=== PATIENT | male | born 1995 | race Caucasian/White ===

== ENCOUNTER 2016-07-09 21:27 | Emergency (ER) | payer OTHER ==
[~2016-07-09 21:27] MED LIST: FISH OIL 1,0001 EAC1 PO; NEXIUM20 M1 PO
[2016-07-09 21:32] VITALS: BP 137/78
--- NOTE | 2016-07-09 21:54 | ED AMS/SEIZURE/WEAK/DIZZY ---
History of Present Illness General Chief Complaint: General Adult Stated Complaint: PT HAD NOSE BLEED,DIZZY,SHAKEY Source: patient Exam Limitations: no limitations Vital Signs & Intake/Output Vital Signs & Intake/Output Vital Signs Date Time Temp Pulse Resp B/P Pulse O2 O2 Flow FiO2 Ox Delivery Rate 07/095 97 Room Air 07/10 2131 97.4 77 18 137/78 96 Room Air ED Intake and Output 07/10 0000 07/09 1200 Intake Total Output Total Balance Patient 145 lb Weight Allergies Coded Allergies: Penicillins (HIVES ALL OVER BODY 07/09/16) Reconcile Medications Esomeprazole Magnesium (Nexium) 20 MG CAPSULE. 1 CAP PO DAILY GI (Reported) Glen-3 Fatty Acids/Fish Oil (Fish Oil 1,000 MG Softgel) (Unknown Strength) CAPSULE (Unknown Dose) PO DAILY SUPPLEMENT (Reported) Triage Note: TRIAGE: PT TO ER C/C "I WAS AT WORK, RUNNING IN AND OUT. I GOT THE NOSE BLEED OUT OF BOTH NOSTRILS. THEN I GOT NAUSEA, GOT HOT AND COLD. MY STOMACH STARTED FEELING FUNNY. I GOT WEAK. MY BOSS SAID I LOOKED PALE." REPORTS STILL FEELS "SHAKEY, WEAK, CONFUSED OR SOMETHING. I'M NOT SURE." NOSEBLEED LASTED "A MINUTE OR TWO". Triage Nurses Notes Reviewed? yes Onset: Abrupt Duration: minute(s):, improving Timing: recent history No Modifying Factors: none HPI: 21-year-old male comes into emergency room with complaints of feeling lightheaded dizzy weak and nauseous after he got a bloody nose at work. Patient reports that he was in the kitchen working. He got a spontaneous nosebleed. Immediately after he fell lightheaded dizzy nauseous and had a sitdown. Denies any chest pain or shortness of breath currently. Denies any heart palpitations. Patient reports that his boss told him to come to the hospital for further evaluation. Patient said that sometimes he feels a weird sensation in his chest when he is walking but doesn't know if that is normal or not. He denies any active chest pain or shortness of breath or cardiac symptoms at the moment. Nosebleed has resolved on its own. (AMANDO GERMAN) Past History Travel History Traveled to [place] past 21 day No Medical History Any Pertinent Medical History? 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 No (AMANDO GERMAN) Review of Systems Review of Systems Constitutional: Reports: no symptoms. EENTM: Reports: no symptoms, see HPI. Respiratory: Reports: no symptoms. Cardiovascular: Reports: see HPI. GI: Reports: no symptoms. Genitourinary: Reports: no symptoms. Musculoskeletal: Reports: no symptoms. Skin: Reports: no symptoms. Neurological/Psychological: Reports: see HPI. Hematologic/Endocrine: Reports: see HPI. Immunologic/Allergic: Reports: no symptoms. All Other Systems: Reviewed and Negative (AMANDO GERMAN) Physical Exam Physical Exam General Appearance: well developed/nourished, no apparent distress, alert, awake Head: atraumatic, normal appearance Eyes: Bilateral: normal appearance, PERRL, EOMI. Ears, Nose, Throat: normal pharynx, normal ENT inspection, hearing grossly normal Neck: normal inspection, supple, full range of motion Respiratory: normal breath sounds, chest non-tender, no respiratory distress Cardiovascular: regular rate/rhythm Back: normal inspection Extremities: normal range of motion Neurologic/Psych: no motor/sensory deficits, awake, alert, oriented x 3, normal gait, normal mood/affect Skin: intact, normal color Core Measures ACS in differential dx? No CVA/TIA Diagnosis: No Severe Sepsis Present: No Septic Shock Present: No (AMANDO GERMAN) Progress Differential Diagnosis: arrythmia, alcohol intoxication, anemia, CVA/stroke, dehydration, drug intoxication, encephalitis, electrolyte imbalance, hypoglycemia, intracranial mass/tumor, pneumonia, presyncope, sepsis, seizure disorder, subarachnoid Hem., UTI/pyelo, vertebrobasilar insuff Plan of Care: Orders Procedure Date/time Status EKG 07/09 2153 Active Initial ED EKG: normal intervals, normal p-waves, normal QRS complex, normal sinus rhythm, rate (64) (AMANDO GERMAN) Departure Departure Disposition: HOME OR SELF CARE Condition: Stable Clinical Impression Primary Impression: Near syncope Referrals: LAINEY GODOY MD (PCP/Family) Additional Instructions: Follow-up with your primary care doctor for further evaluation and outpatient workup. Return to the emergency room immediately if any other concerns worsening symptoms. Return if any chest pain shortness of breath or palpitations. Please go over all results of today's visit with your primary care doctor. Contact your primary care doctor to let them know you were here in the emergency room. There may be nonspecific findings which may not be related to your visit today here in the emergency room but may require further evaluation and chronic monitoring by your primary care doctor. If you had a laceration today the chance of foreign body always remains. You should follow-up with your primary care doctor for recheck in 3-5 days for a wound check. If you had an x-ray done there is a chance that a fracture could have been missed on initial read and you should follow-up with your primary care doctor for repeat x-rays if symptoms persist. If your blood pressure was elevated here in the emergency room please have rechecked by her primary care doctor within the next 48 hours by your primary care doctor. If you were prescribed a narcotic here in the emergency room or any type of controlled substances you're not allowed to drive while taking this medication or operate any type of heavy machinery. Narcotics can make you feel lightheaded dizziness nausea and can cause constipation. You may need to chicken picker a stool softener. Thank you for choosing [facility] emergency room. Please return to the emergency room immediately if you have any other concerns worsening of symptoms. Departure Forms: Customer Survey General Discharge Information Comments 07/09/2016 10:58:49 PM Patient clinically looks well. Nontoxic-appearing. In no apparent distress. Shared decision making. I offered the patient further evaluation with blood work put he agrees with my plan of care. He declined at this time. I explained to him I do not feel it is 100% necessary at the moment. Patient likely had a vasovagal episode. He clinically looks well. Vital stable. EKG within normal limits. Patient reports he feels still slightly shaky. Has no cardiac or pulmonary symptoms currently. Patient safe to be discharged and follow up with primary care doctor. Return if any other concerns. (AMANDO GERMAN) PA/FORENSIC ANALYST Co-Sign Statement Statement: ED Attending supervision documentation- [] I saw and evaluated the patient. I have also reviewed all the pertinent lab results and diagnostic results. I agree with the findings and the plan of care as documented in the PA's/FORENSIC ANALYST's documentation. [x] I have reviewed the ED Record and agree with the PA's/FORENSIC ANALYST's documentation. [] Additions or exceptions (if any) to the PAs/FORENSIC ANALYST's note and plan are summarized below: [] (MORA HUNTER,DEVANTE Smith
== END 2016-07-09 22:37 ==
LOC: ERH 21:27
DX: R55 Syncope and collapse (principal)
CPT/HCPCS: 93005; 93010

== ENCOUNTER 2017-06-09 14:54 | Emergency (ER) | payer OTHER ==
[~2017-06-09] VITALS: Ht 180.3 cm; Wt 68.0 kg
[2017-06-09 15:00] VITALS: BP 125/84
--- NOTE | 2017-06-09 15:02 | ED ANIMAL BITE/WOUND CHECK ---
History of Present Illness General Chief Complaint: Suture Removal/Wound Recheck Stated Complaint: SUTURE REMOVAL Source: patient Exam Limitations: no limitations Vital Signs & Intake/Output Vital Signs & Intake/Output Vital Signs Date Time Temp Pulse Resp B/P B/P Pulse O2 O2 Flow FiO2 Mean Ox Delivery Rate 06/09 1500 97.7 100 15 125/84 98 Room Air Room Air Allergies Coded Allergies: Penicillins (HIVES ALL OVER BODY 06/09/17) Reconcile Medications Esomeprazole Magnesium (Nexium) 20 MG CAPSULE.DR 1 CAP PO DAILY GI (Reported) [place]-3 Fatty Acids/Fish Oil (Fish Oil 1,000 MG Softgel) (Unknown Strength) CAPSULE (Unknown Dose) PO DAILY SUPPLEMENT (Reported) Triage Nurses Notes Reviewed? yes Onset: 10 DAYS AGO Duration: day(s): (10) Timing: remote history Injury Environment: home Is Injury an Animal Bite? No Severity: mild HPI: Patient is a 22-year-old male here for suture removal. Was seen and evaluated here 10 days ago for left index finger laceration. Reports his been healing up well. No fevers chills nausea vomiting chest pain or shortness breath. Denies any numbness or tingling. Past History Travel History Traveled to [place] past 21 day No Medical History Any Pertinent Medical History? 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 No Review of Systems Review of Systems Constitutional: Reports: no symptoms. Comments Review of systems: See HPI, All other systems negative. Constitutional, no chills fever or weight loss HEENT: No visual changes no sore throat no congestion Cardiovascular: No chest pain ,palpitation Skin, no jaundice no rashes Respiratory: No dyspnea cough sputum or hemoptysis GI: No nausea no vomiting Muscle skeletal: no back pain, no neck pain, Neurologic: No numbness Immunology: No splenectomy or history of AIDS Physical Exam Physical Exam General Appearance: well developed/nourished, no apparent distress, alert, awake , comfortable Comments: Well-developed well-nourished person in no acute distress HEENT: Atraumatic, normocephalic Neck: Normal inspection Cardiovascular: Radial pulses are 2+ bilaterally. Cap refill intact in left upper extremity. Respiratory: No respiratory distress. Extremity: No edema, Neuro: Alert oriented x3, motor sensory normal Skin: Well healing 1 cm laceration of the distal tip of the left index finger. [address] without any surrounding erythema or edema. No discharge. Psych: Mood and affect is normal, memory and judgment is normal. Progress Differential Diagnosis: WOUND CHECK, SUTURE REMOVAL Plan of Care: 6 sutures removed without difficulty. Patient nontoxic. Departure Departure Time of Disposition: 1501 Disposition: HOME OR SELF CARE Condition: Stable Clinical Impression Primary Impression: Visit for suture removal Referrals: Unknown (PCP/Family) Additional Instructions: Follow-up with your primary care physician in 5-7 days. Call to make an appointment. Keep wound clean and dry. Return sooner for any worsening symptoms or concerns. Take [id number] Motrin and Tylenol as directed for any aches pains or fevers. Departure Forms: Customer Survey General Discharge Information
== END 2017-06-09 15:12 ==
LOC: ERH 14:54
DX: Z48.02 Encounter for removal of sutures (principal)